=== PATIENT | male | born 1945 | race Caucasian/White ===

== ENCOUNTER 2017-05-03 08:00 | Day surgery (SDC) | payer MEDICARE ==
[2017-05-02 11:52] VITALS: BMI 24.4
[2017-05-03 09:12] LABS: INR-International Normal Ratio 1.6; Prothrombin Time 19.3 SEC (12.0-14.7)
[2017-05-03 09:17] LABS: PTT 32.4 SEC (22.9-36.1)
[2017-05-03 09:20] LABS: Anion Gap 12 mmol/L (10-20); BUN (Urea Nitrogen) 10 mg/dL (8.4-25.7); Calc. Creatinine Clearance 65 mL/min (70-130); Calcium 9.1 mg/dL (7.8-10.44); Carbon Dioxide 28 mmol/L (23-31); Chloride 101 mmol/L (98-107); Estimated GFR-MDRD 71; Glucose 116 mg/dL (83-110); Sodium 137 mmol/L (136-145)
[2017-05-03 09:22] LABS: #Lymphocytes 0.9 thou/uL (1.20-3.40); #Monocytes 0.6 thou/uL (0.11-0.59); #Neutrophils 4.2 thou/uL (1.40-6.50); %Basophils 0.8 % (0.0-1.0); %Eosinophils 0.9 % (0.0-10.0); %Lymphocytes 15.4 % (21.0-51.0); %Monocytes 9.5 % (0.0-10.0); %Neutrophils 73.4 % (42.0-75.0); Mean Corpuscular HGB CONC 33.4 g/dL (32.0-36.0); Platelet Count 240 thou/uL (130-400); RBC Distribution Width 12.8 % (11.5-14.5); Red Blood Cell (RBC) Count 4.27 mill/uL (4.70-6.10); White Blood Cell (WBC) Count 5.8 thou/uL (4.8-10.8)
[2017-05-03] MEDS ORDERED: Fentanyl 100 MCG/2 ML VIAL ONE (09:48)
--- NOTE | 2017-05-03 11:17 | OP ---
DATE OF PROCEDURE: 05/03/2017 PREPROCEDURE DIAGNOSIS: Atrial fibrillation. PROCEDURES PERFORMED: Synchronized direct current cardioversion. SUMMARY: Mr. Mcginnis is a very pleasant 72-year-old white gentleman who comes to the outpatient are a for a planned PETER cardioversion. Please see PETER report for details. After PETER had cleared him fro m any thrombus and the Anesthesia department provided with sedation for the patient, he was adequatel y sedated. One single synchronized 100 joules defibrillator shock was delivered, successfully conver ting him from atrial fibrillation into sinus bradycardia, heart rate in the mid 50s. The patient mireya erated the procedure well. RECOMMENDATIONS: 1. Continue Flecainide and Eliquis. 2. Follow up in the office in 1 month. 3. May discharge home later today.
[2017-05-03] MEDS ORDERED: PROPOFOL 200 MG/20 ML VIAL ONE (14:15)
[2017-05-03] MEDS ORDERED: Lidocaine 1% PF 5 ML VIAL ONE (14:15)
--- NOTE | 2017-05-03 16:25 | ECHO ---
TRANSESOPHAGEAL ECHOCARDIOGRAM: DATE OF SERVICE: 05/03/17 REASON FOR STUDY: Evaluation for cardioversion. DETAILS: The anesthesia department provided anesthesia for the patient. Please see their notes for details. After adequate sedation was achieved, the PETER probe was inserted into the patient's mouth and into the esophagus without issues. Multiplanar views were then obtained. FINDINGS: Left ventricle appears to be normal size with normal wall thickness. Systolic function is normal with EF estimated at 50%. No regional wall motion abnormalities. Left atrium is dilated. Left atrial appendage is a large appendage with severely reduced velocities and spontaneous echo contrast. There is no evidence of mass or thrombus. Right atrium is mildly dilated. Interatrial septum is intact by color Doppler. Right ventricle is normal size with normal systolic function. Aortic root is normal size. There is a small amount of atherosclerotic disease in the ascending aorta. Aortic valve structurally normal. Three cusps. No stenosis or regurgitation. Mitral valve is structurally normal. There is mild MR. No stenosis. Tricuspid valve is structurally normal. There is mild TR. No stenosis. Pulmonary valve structurally normal. No stenosis or regurgitation. CONCLUSIONS: 1. Normal systolic function, EF of 50-55%. 2. Dilated left atrium. 3. Large left atrial appendage with spontaneous echo contrast, but no evidence of mass or thrombus. The patient was in atrial fibrillation during study. 4. Right atrial enlargement. 5. Mild MR, mild TR. MTDD
== END 2017-05-03 11:40 | disposition home or self-care (01) ==
LOC: CCL 08:00
PROVIDERS: ATTEND Internal Medicine Cardiovascular Disease
DX: I48.91 Unspecified atrial fibrillation (principal); I34.0 Nonrheumatic mitral (valve) insufficiency; I07.1 Rheumatic tricuspid insufficiency; E11.9 Type 2 diabetes mellitus without complications; I10 Essential (primary) hypertension; E78.5 Hyperlipidemia, unspecified; I25.2 Old myocardial infarction; Z79.01 Long term (current) use of anticoagulants; Z79.899 Other long term (current) drug therapy; Z98.41 Cataract extraction status, right eye; Z98.42 Cataract extraction status, left eye; Z98.890 Other specified postprocedural states
CPT/HCPCS: 80048; 85025; 85610; 85730; 92960; 93312; J2001; J2704; J3010

== ENCOUNTER 2017-07-10 16:02 | Emergency (ER) | payer MEDICARE ==
[2017-07-10 16:54] LABS: #Eosinphils 0.2 thou/uL (0.0-0.7); #Lymphocytes 1.2 thou/uL (1.20-3.40); #Monocytes 0.8 thou/uL (0.11-0.59); #Neutrophils 3.6 thou/uL (1.40-6.50); %Basophils 0.2 % (0.0-1.0); %Eosinophils 2.8 % (0.0-10.0); %Lymphocytes 21.5 % (21.0-51.0); %Monocytes 13.1 % (0.0-10.0); %Neutrophils 62.4 % (42.0-75.0); Mean Corpuscular HGB CONC 34.2 g/dL (32.0-36.0); Mean Corpuscular Hemoglobin 34.9 pg (27.0-31.0); Mean Platelet Volume 6.2 fL (7.4-10.4); Platelet Count 294 thou/uL (130-400); RBC Distribution Width 12.8 % (11.5-14.5); Red Blood Cell (RBC) Count 4.31 mill/uL (4.70-6.10); White Blood Cell (WBC) Count 5.8 thou/uL (4.8-10.8)
[2017-07-10 17:14] LABS: ALT (SGPT) 26 U/L (8-55); AST (SGOT) 19 U/L (5-34); Albumin 4.2 g/dL (3.4-4.8); Alkaline Phosphatase 109 U/L (40-150); Anion Gap 12 mmol/L (10-20); BUN (Urea Nitrogen) 11 mg/dL (8.4-25.7); Bilirubin, Total 0.6 mg/dL (0.2-1.2); Calc. Creatinine Clearance 0 mL/min (70-130); Calcium 9.4 mg/dL (7.8-10.44); Carbon Dioxide 28 mmol/L (23-31); Chloride 102 mmol/L (98-107); Estimated GFR-MDRD 80; Globulin 3.3 g/dL (2.4-3.5); Glucose 85 mg/dL (83-110); Potassium 4.2 mmol/L (3.5-5.1); Protein, Total 7.5 g/dL (5.8-8.1); Sodium 138 mmol/L (136-145)
[2017-07-10 17:19] LABS: CKMB 0.9 ng/mL (0-6.6); Troponin I 0.014 ng/mL (< 0.028)
== END 2017-07-10 17:42 | disposition home or self-care (01) ==
LOC: ERS 16:02
DX: I10 Essential (primary) hypertension (principal); I48.91 Unspecified atrial fibrillation; E11.9 Type 2 diabetes mellitus without complications; E78.5 Hyperlipidemia, unspecified; Z87.891 Personal history of nicotine dependence; Z79.82 Long term (current) use of aspirin; Z79.899 Other long term (current) drug therapy
CPT/HCPCS: 80053; 82553; 84443; 84484; 85025; 93005

== ENCOUNTER 2017-07-11 08:38 | Outpatient (CLI) | payer MEDICARE ==
[2017-07-11 10:26] LABS: INR-International Normal Ratio 1.4; PTT 31.2 SEC (22.9-36.1); Prothrombin Time 17.2 SEC (12.0-14.7)
[2017-07-11 10:29] LABS: Cardiac Risk 4.7 (Less than 4.5)
== END 2017-07-11 08:39 | disposition home or self-care (01) ==
LOC: LABBT 08:38
PROVIDERS: ATTEND Internal Medicine Cardiovascular Disease
DX: Z01.812 Encounter for preprocedural laboratory examination (principal); I70.90 Unspecified atherosclerosis
CPT/HCPCS: 80061; 85610; 85730

== ENCOUNTER → 2017-07-13 | Day surgery (SDC) | payer MEDICARE ==
[2017-07-11 09:17] VITALS: BMI 24.3
[~2017-07-13] MED LIST: Fentanyl 250 MCG/5 ML VIAL ONE; Heparin 10,000 UNITS/1 ML VIAL ONE; Iopamidol 370 76% 100 ML VIAL ONE; Lidocaine 1% (PF) 30 ML VIAL ONE; Midazolam HCl 2 mg/2 ml Vial ONE; Nitroglycerin 100MG/250ML BOT 250 ML ONE; Verapamil 5 MG/2 ML VIAL ONE; hydrALAZINE 20 MG/ML VIAL ONE
== END ==
LOC: CCL 06:12
PROVIDERS: ATTEND Internal Medicine Cardiovascular Disease
PROC: B2111ZZ Fluoroscopy of Multiple Coronary Arteries using Low Osmolar Contrast (ICD-10-PCS; principal; 2017-07-13)
PROC: 4A023N7 Measurement of Cardiac Sampling and Pressure, Left Heart, Percutaneous Approach (ICD-10-PCS; 2017-07-13)
DX: I25.10 Atherosclerotic heart disease of native coronary artery without angina pectoris (principal); I10 Essential (primary) hypertension; E11.9 Type 2 diabetes mellitus without complications; E78.5 Hyperlipidemia, unspecified; I25.2 Old myocardial infarction; Z79.01 Long term (current) use of anticoagulants; Z79.899 Other long term (current) drug therapy
CPT/HCPCS: 93458; C1769; 99152; J0360; J1644; J2001; J2250; J3010

== ENCOUNTER 2017-07-25 08:33 | Outpatient (CLI) | payer MEDICARE | END 2017-07-25 08:34 | disposition home or self-care (01) | LOC: LABBT 08:33 | PROVIDERS: ATTEND Internal Medicine Cardiovascular Disease | DX: Z01.818 Encounter for other preprocedural examination (principal); I48.0 Paroxysmal atrial fibrillation ==

== ENCOUNTER 2017-07-26 06:07 | Day surgery (SDC) | payer MEDICARE ==
[2017-07-25 08:57] VITALS: BMI 24.3
[2017-07-26] MEDS ORDERED: Lidocaine 1% PF 5 ML VIAL ONE ×2 (12:53→13:17)
[2017-07-26] MEDS ORDERED: PROPOFOL 200 MG/20 ML VIAL ONE (12:53)
[2017-07-26] MEDS ORDERED: PROPOFOL 20 ML ONE (13:18)
--- NOTE | 2017-08-04 20:12 | OP ---
DATE OF SERVICE: 07/27/2017. PROCEDURES PERFORMED: Cardioversion. SUMMARY: The patient was brought to the outpatient area for planned cardioversion. He has been on Eliquis for about 2 months now nonstop and is back in atrial fibrillation, very symptomatic. He was sedated by the Anesthesia Department. Please see their notes for detail. After adequate sedation was achieved One single 100 joules synchronized cardioversion shock was delivered successfully converting him from atrial fibrillation to sinus bradycardia. Heart rate initially in the 30s, but slowly picked up back to the 40s and low 50s. Patient tolerated the procedure well. RECOMMENDATIONS: 2. Continue antiarrhythmic therapy and anticoagulation with Eliquis. 3. Follow up in the office in one month.
== END 2017-07-26 14:42 | disposition home or self-care (01) ==
LOC: CCL 06:07
PROVIDERS: ATTEND Internal Medicine Cardiovascular Disease
PROC: 5A2204Z Restoration of Cardiac Rhythm, Single (ICD-10-PCS; principal; 2017-07-26)
DX: I48.0 Paroxysmal atrial fibrillation (principal); E11.9 Type 2 diabetes mellitus without complications; I10 Essential (primary) hypertension; E78.5 Hyperlipidemia, unspecified; I25.2 Old myocardial infarction; I70.90 Unspecified atherosclerosis; Z79.01 Long term (current) use of anticoagulants; Z79.899 Other long term (current) drug therapy
CPT/HCPCS: 92960; J2001; J2704

== ENCOUNTER 2017-11-14 13:30 | Outpatient (CLI) | payer MEDICARE ==
[2017-11-14 14:53] LABS: Hemoglobin 16.2 g/dL (14.0-18.0); Mean Corpuscular HGB CONC 35.3 g/dL (32.0-36.0); Mean Corpuscular Hemoglobin 35.7 pg (27.0-31.0); Mean Platelet Volume 5.7 fL (7.4-10.4); Platelet Count 284 thou/uL (130-400); RBC Distribution Width 12.9 % (11.5-14.5); Red Blood Cell (RBC) Count 4.55 mill/uL (4.70-6.10); White Blood Cell (WBC) Count 5.9 thou/uL (4.8-10.8)
[2017-11-14 14:56] LABS: INR-International Normal Ratio 1.3; Prothrombin Time 16.5 SEC (12.0-14.7)
[2017-11-14 14:57] LABS: PTT 33.9 SEC (22.9-36.1)
[2017-11-14 15:09] LABS: Anion Gap 14 mmol/L (10-20); BUN (Urea Nitrogen) 8 mg/dL (8.4-25.7); Calc. Creatinine Clearance 0 mL/min (70-130); Calcium 9.3 mg/dL (7.8-10.44); Carbon Dioxide 30 mmol/L (23-31); Chloride 85 mmol/L (98-107); Estimated GFR-MDRD 74; Glucose 164 mg/dL (83-110); Potassium 3.6 mmol/L (3.5-5.1); Sodium 125 mmol/L (136-145)
--- NOTE | 2017-11-14 17:31 | EKG ---
Test Reason : Blood Pressure : / mmHG Vent. Rate : 083 BPM Atrial Rate : 150 BPM P-R Int : 000 ms QRS Dur : 102 ms QT Int : 388 ms P-R-T Axes : 000 072 063 degrees QTc Int : 455 ms Atrial fibrillation Anteroseptal infarct (cited on or before 10-JUL-2017) Abnormal ECG When compared with ECG of 10-JUL-2017 16:07, Questionable change in QRS axis Confirmed by RADHA KUMAR ([id number]) on 11/14/2017 5:31:47 PM Referred By: SO Confirmed By:RADHA KUMAR
== END 2017-11-14 13:31 | disposition home or self-care (01) ==
LOC: LABBT 13:30
PROVIDERS: ATTEND Internal Medicine Cardiovascular Disease
DX: Z01.818 Encounter for other preprocedural examination (principal); I48.91 Unspecified atrial fibrillation
CPT/HCPCS: 80048; 85027; 85610; 85730; 93005; 93010

== ENCOUNTER 2017-11-19 06:01 | Inpatient (IN) | payer MEDICARE ==
[2017-11-19] MEDS ORDERED: Fentanyl 100 MCG/2 ML VIAL ONE (07:18)
[2017-11-19] MEDS ORDERED: Heparin 10,000 UNITS/1 ML VIAL ONE ×2 (08:27→12:10)
[2017-11-19] MEDS ORDERED: Isoproterenol 0.2 MG/1 ML AMP ONE (08:28)
[2017-11-19] MEDS ORDERED: Heparin 25,000 units/D5W 500 ML ONE (10:42)
[2017-11-19] MEDS ORDERED: Phenylephrine HCL 10 MG/ML VIAL ONE (10:43)
[2017-11-19] MEDS ORDERED: PROPOFOL 200 MG/20 ML VIAL ONE (11:55)
[2017-11-19] MEDS ORDERED: Esmolol 100 MG/10 ML VIAL ONE (11:55)
[2017-11-19] MEDS ORDERED: Heparin 30,000 units/30 ml VIAL ONE (11:55)
[2017-11-19] MEDS ORDERED: PHENYLEPHRINE-NS 100 MCG/ML 10 ML SYRINGE ONE (11:55)
[2017-11-19] MEDS ORDERED: Glycopyrrolate 0.2 MG/ML 5 ML SYRINGE ONE (11:55)
[2017-11-19] MEDS ORDERED: Protamine Sulfate 50 MG/5 ML VIAL ONE (13:05)
--- NOTE | 2017-11-19 13:06 | OP ---
DATE OF PROCEDURE: 11/19/2017 SURGEON: Dr. Jose Christie REFERRING PHYSICIAN: Dr. Adonay Subramanian PROCEDURE: ELECTROPHYSIOLOGY STUDY/RADIOFREQUENCY ABLATION REASON FOR PROCEDURE: Mr. Mcginnis has a persistent atrial fibrillation/ flutter here for a pulmonary venous isolation procedure. PROCEDURE: The patient received General anesthesia by Anesthesia specialist. After adequate sedation, the left and right groin was prepped, draped and anesthetized using subcutaneous lidocaine and under ultrasound guidance, both veins were cannulated x2. A 9-Sierra Leonean sheath was used to advance the ice catheter throughout the procedure. This was used to monitor effusion as well as to do transseptal procedure. The right femoral veins had two 8 [place]an sheaths introduced through which a catheter was advanced to the right atrium and 3D map of the right atrium was performed. Following that, the SF/ST ablation catheter was removed. A 8 [place] sheath was exchanged for a preface sheath and a Duodeca catheter was advanced into the appropriate CS/right atrial position. Following that, transseptal puncture was performed x2 with 2 SL1 sheaths under ultrasound guidance. The heparin was administered throughout the case at that point and ACT was monitored to keep it over 350. Following that, the ablation catheter was replaced in the left atrium as well as a pentarray catheter. A 3D map of the left atrium was performed and a pulmonary venous isolation performed with careful monitoring of his esopahgeal temperatures. At this point, the patient remained in atrial fibrillation. Following that, the posterior wall was isolated. The patient still remained in atrial fibrillation. Following that, the ablation was performed on the base of the left atrium and over the CS. Still the patient remained in atrial fibrillation. Following that, early national dedicated truck driver on the right atrium was noted so the ablation catheter was withdrawn to the right atrium and ablation was performed in the miguel area. High energy pacing did not capture the phrenic nerve capture at the ablation sites. Alos ablation on the CS was performend at 25W. This eliminated the drivers of rapid atrila arrhtyhmia and and we noted a slower, more organized flutter@ CL 280ms. This flutter was pace mapped to the anterior left atrium close to the base of the appendage. Ablation performed in this area terminated the flutter, but an additional flutter was seen at cycle length 380 milliseconds. This flutter was mapped to the mitral valve isthmus and ablation of mitral valve isthmus ablated the atrial flutter. The patient converted to sinus rhythm with this maneuver. Following that isuprel was administered and remapping of the pulmonary veins were performed. No connections were needed to be re-ablated. The cardiac silhouette and ICE images reviewed, but did not reveal significant effusion. The catheters were withdrawn to the right atrium and then removed from the body. ACT was checked and protamine was administered to reverse the heparin effect. The sheaths were removed in the dental laboratory assistant. Measurements: HV 46ms. BAseline atrial fib. Final Sinus rhtyhm. Normal retrograde VA conduction, no accessory pathwas seen. The total amount of ablation performed was 92. Total ablation time 41 minutes. The power today was 40 hooks except for in the coronary sinus where the ablation was also performed at 25 hooks. CONCLUSION: Successful pulmonary venous isolation and additional right atrial and 2 left atrial tachycardia ablations. PLAN: Routine postoperative care. Resume anticoagulation and routine monitoring. MTDD
[2017-11-19] MEDS ORDERED: Acetaminophen/Codeine 30-300mg Tablet PO PRN ×2 (15:15)
[2017-11-19 18:53] VITALS: BMI 25.0
[2017-11-19] MEDS: Apixaban 5 MG TAB PO SCH (21:19)
[2017-11-19] MEDS: Atorvastatin Calcium 10 MG TAB PO SCH (21:21)
[2017-11-20] MEDS: Hydrochlorothiazide 25 MG TAB PO SCH (08:23)
[2017-11-20] MEDS: Lisinopril 20 MG TAB PO SCH (08:24)
[2017-11-20] MEDS: Apixaban 5 MG TAB PO SCH ×2 (08:24→20:09)
[2017-11-20] MEDS: Escitalopram Oxalate 10 mg Tablet PO SCH (08:24)
[2017-11-20] MEDS ORDERED: Prevnar 13-Val Conj/PF 0.5 ML SYRINGE IM ONE (09:00)
[2017-11-20] MEDS ORDERED: Furosemide 40 MG/4 ML VIAL SLOW IVP SCH ×2 (15:30→18:45)
--- NOTE | 2017-11-20 16:07 | RAD ---
CHEST ONE VIEW: History: Hypoxia, tachypnea. FINDINGS: Cardiac silhouette is magnified and enlarged. Pulmonary vasculature is engorged with bilateral perihi lar and bibasilar infiltrates. Mediastinum is midline. No lobar consolidation or evidence of pneumoth orax. potline monitor leads overlie the chest. IMPRESSION: Cardiomegaly with pulmonary edema. POS: [facility]
[2017-11-20 16:15] LABS: Hemoglobin 14.6 g/dL (14.0-18.0); Mean Corpuscular Hemoglobin 36.4 pg (27.0-31.0); Mean Platelet Volume 5.4 fL (7.4-10.4); Platelet Count 266 thou/uL (130-400); RBC Distribution Width 13.4 % (11.5-14.5); Red Blood Cell (RBC) Count 4.02 mill/uL (4.70-6.10); White Blood Cell (WBC) Count 9.8 thou/uL (4.8-10.8)
[2017-11-20 16:30] LABS: ALT (SGPT) 21 U/L (8-55); AST (SGOT) 45 U/L (5-34); Albumin 3.9 g/dL (3.4-4.8); Alkaline Phosphatase 90 U/L (40-150); Anion Gap 17 mmol/L (10-20); BUN (Urea Nitrogen) 10 mg/dL (8.4-25.7); Bilirubin, Total 0.9 mg/dL (0.2-1.2); Calc. Creatinine Clearance 154 mL/min (70-130); Calcium 8.7 mg/dL (7.8-10.44); Carbon Dioxide 22 mmol/L (23-31); Chloride 94 mmol/L (98-107); Estimated GFR-MDRD 77; Glucose 124 mg/dL (83-110); Potassium 3.6 mmol/L (3.5-5.1); Protein, Total 6.9 g/dL (5.8-8.1); Sodium 129 mmol/L (136-145)
[2017-11-20] MEDS ORDERED: Enalaprilat Dihydrate 1.25 MG/ML VIAL SLOW IVP PRN (16:32)
[2017-11-20] MEDS: Labetalol HCl 100 MG/20 ML VIAL SLOW IVP PRN ×2 (16:39→17:50)
[2017-11-20 16:41] LABS: Band 9 % (5-11); Eosinophils 1 % (0-10); Lymphocytes 4 % (21-51); MDiff Complete? YES; Monocytes 4 % (0-10); Neutrophil 82 % (42-75); PLT Morphology Comment Appears Adequate
[2017-11-20] MEDS ORDERED: niCARdipine HCl 25 MG in Sodium Chloride 0.9% 250 ML 240 ML IVPB SCH (17:00)
--- NOTE | 2017-11-20 17:47 | PDOC.CTH ---
Cardiology Progress Note - Subjective EP progress note: Patient seen and evaluated. Reports poor sleep, a persisting cough, and some shortness or breath. Denies any chest pain, dizziness, or palpitations. Has been OOB walking last night with RN. Minimally active today. - ROS shortness of breath - Objective Vital Signs Temp Pulse Pulse Resp Resp BP BP 11/20/17 17:03 99.9 F H 88 24 H 11/20/17 16:41 88 11/20/17 16:39 93 177/108 H 11/20/17 16:38 177/108 H 11/20/17 16:05 99.9 F H 11/20/17 16:03 96 35 H 11/20/17 15:54 97 22 H 167/90 H 11/20/17 15:18 101 H 222/116 H 11/20/17 15:04 102 H 36 H 206/106 H 11/20/17 15:00 11/20/17 11:03 99.1 F 90 20 11/20/17 08:15 99 F 94 17 11/20/17 07:15 99 F 94 17 BP Pulse Ox Pulse Ox 11/20/17 17:03 95 11/20/17 16:41 11/20/17 16:39 11/20/17 16:38 11/20/17 16:05 11/20/17 16:03 167/90 H 94 L 11/20/17 15:54 94 L 11/20/17 15:18 11/20/17 15:04 79 L 11/20/17 15:00 90 L 11/20/17 11:03 146/87 H 97 11/20/17 08:15 11/20/17 07:15 168/92 H 93 L Weight 352 lb 1.251 oz 11/19/17 11/20/17 11/21/17 06:59 06:59 06:59 Intake Total 1480 Output Total 550 2120 Balance -550 -640 - Physical Examination General/Neuro: alert & oriented x3, NAD Neck: carotid US brisk, no JVD present (JVD) Lungs: other: (extensive Bilateral crackles throughout, tachypnea) Heart: RRR Abdomen: no HSM, NT/ND, soft - Telemetry Telemetry Rhythm: Sinus rhythm - Labs Result Diagrams: 11/20/17 15:57 11/20/17 15:57 - Assessment/Plan 1. Atrial fibrillation s/p PVAI yesterday, now maintaining sinus rhythm 2. Pulmonary Edema/Fluid overload 3. Hypertension 4. Small percardial effusion by echo 5. Hyponatremia Patient was in moderate respiratory distress with obvious increased work of breathing and hypertensive. 40mg IV lasix was given with minimal effect. Labs, CXR, and echo ordered. Echo showed small pericardial effusion. CXR showed pulmonary edema. Transferred to [facility] for Bipap support and Dr. Muhammad was consulted by Dr Christie. He will require further diuresing and respiratory support during this time. IV antihypertensives ordered. Dr Christie spoke with family and updated them on the situation.
[2017-11-20] MEDS ORDERED: Potassium Chloride 20 MEQ TAB PO PRN (18:32)
[2017-11-20] MEDS ORDERED: Potassium Chloride 40 MEQ in Premix Bag 1 BAG IVPB PRN (18:32)
[2017-11-20] MEDS ORDERED: Potassium Phosphate 15 MMOL in Sodium Chloride 0.9% 250 ML 250 ML IV PRN (18:32)
[2017-11-20] MEDS ORDERED: Magnesium 2 GM/NS 0.9% 100 ML 2 GM in Premix Bag 1 BAG IVPB PRN (18:32)
[2017-11-20] MEDS ORDERED: Potassium Phosphate 12 MMOL in Sodium Chloride 0.9% 250 ML 250 ML IV PRN (18:32)
[2017-11-20] MEDS ORDERED: Magnesium Oxide 400 MG TAB PO PRN ×2 (18:32)
[2017-11-20] MEDS ORDERED: Potassium Phosphate 9 MMOL in Sodium Chloride 0.9% 100 ML IVPB PRN (18:32)
[2017-11-20] MEDS ORDERED: Potassium Chloride 40 MEQ in Sodium Chloride 0.9% 250 ML 250 ML IVPB PRN (18:32)
[2017-11-20] MEDS ORDERED: CCU ELECTROLYTE REPLACEMENT PROTOCOL FS PRN (18:32)
[2017-11-20] MEDS ORDERED: Potassium Chloride 20 MEQ TAB PO SCH (18:45)
[2017-11-20 19:44] LABS: Anion Gap 15 mmol/L (10-20); BUN (Urea Nitrogen) 10 mg/dL (8.4-25.7); Calc. Creatinine Clearance 146 mL/min (70-130); Calcium 9.1 mg/dL (7.8-10.44); Carbon Dioxide 24 mmol/L (23-31); Chloride 93 mmol/L (98-107); Estimated GFR-MDRD 73; Glucose 120 mg/dL (83-110); Potassium 3.5 mmol/L (3.5-5.1); Sodium 128 mmol/L (136-145)
[2017-11-20] MEDS ORDERED: Colchicine 0.6 MG TAB PO SCH ×2 (20:00→21:00)
[2017-11-20] MEDS: Atorvastatin Calcium 10 MG TAB PO SCH (20:09)
--- NOTE | 2017-11-20 22:22 | CON ---
DATE OF CONSULTATION: 11/20/2017 HISTORY OF PRESENT ILLNESS: Mr. Mcginnis is a pleasant gentleman, who underwent an elective atrial f ibrillation ablation today. He apparently became tachypneic and was transferred to the ICU. He was extremely hypertensive on arrival. When I arrived, his blood pressure is 190/105. After 10 minutes, I checked his blood pressure, again it is 156/90. His heart rate is in the 70s, hi s respiratory rate is in the 20s, now he is on BiPAP. PAST MEDICAL HISTORY: Remarkable for, 1. Left carotid endarterectomy in 2016. 2. History of lipid disorder. 3. History of hypertension. 4. History of reflux with esophageal stricture. It has been dilated in the past. FAMILY HISTORY: The mother . Father in his 60s. Mother in her 80s. SOCIAL HISTORY: He is a former smoker, does not smoke now, does drink on a daily basis. ALLERGIES: He has no drug allergies. REVIEW OF SYSTEMS: Ten points is, otherwise, negative. PHYSICAL EXAMINATION: VITAL SIGNS: He is currently 150/93, heart rate 77, respiratory rate is in the 20s. HEENT: His pupils are equal. Sclerae is anicteric. NECK: Supple. LUNGS: Remarkable for fine crackles at both lung bases. HEART: Regular rhythm. S1 and S2 are normal. There is no S3 heard. ABDOMEN: Soft and nontender. EXTREMITIES: Without clubbing, cyanosis, or edema. NEUROLOGIC: Grossly nonfocal. Chest radiograph was reviewed by me, shows pulmonary edema. IMPRESSION: Hypertensive pulmonary edema, improving with blood pressure control. He has received 2 antihypertensive drugs, appears to be improving. Veronica is now on standby. per my orders. I suspe ct we will be able to remove BiPAP here within the hour. Critical care time, 30 minutes.
[2017-11-21 05:25] LABS: #Eosinphils 0.1 thou/uL (0.0-0.7); #Lymphocytes 0.9 thou/uL (1.20-3.40); #Monocytes 0.9 thou/uL (0.11-0.59); #Neutrophils 5.7 thou/uL (1.40-6.50); %Basophils 0.5 % (0.0-1.0); %Eosinophils 1.1 % (0.0-10.0); %Lymphocytes 11.4 % (21.0-51.0); %Monocytes 12.3 % (0.0-10.0); %Neutrophils 74.7 % (42.0-75.0); Mean Corpuscular HGB CONC 35.4 g/dL (32.0-36.0); Mean Corpuscular Hemoglobin 36.6 pg (27.0-31.0); Mean Platelet Volume 5.5 fL (7.4-10.4); Platelet Count 216 thou/uL (130-400); RBC Distribution Width 13.1 % (11.5-14.5); Red Blood Cell (RBC) Count 3.55 mill/uL (4.70-6.10); White Blood Cell (WBC) Count 7.6 thou/uL (4.8-10.8)
[2017-11-21 05:38] LABS: Anion Gap 16 mmol/L (10-20); BUN (Urea Nitrogen) 11 mg/dL (8.4-25.7); Calc. Creatinine Clearance 168 mL/min (70-130); Calcium 8.6 mg/dL (7.8-10.44); Carbon Dioxide 24 mmol/L (23-31); Chloride 93 mmol/L (98-107); Estimated GFR-MDRD 86; Glucose 112 mg/dL (83-110); Potassium 3.6 mmol/L (3.5-5.1); Sodium 129 mmol/L (136-145)
[2017-11-21] MEDS: Apixaban 5 MG TAB PO SCH (08:41)
[2017-11-21] MEDS: Escitalopram Oxalate 10 mg Tablet PO SCH (08:43)
[2017-11-21] MEDS: Hydrochlorothiazide 25 MG TAB PO SCH (08:44)
[2017-11-21] MEDS: Lisinopril 20 MG TAB PO SCH (08:44)
[2017-11-21 08:46] VITALS: BP 158/73
[2017-11-21] MEDS ORDERED: Colchicine 0.6 MG TAB PO SCH (09:00)
[2017-11-21] MEDS ORDERED: Furosemide 40 MG/4 ML VIAL SLOW IVP SCH (09:00)
[2017-11-21] MEDS ORDERED: Potassium Chloride 20 MEQ TAB PO SCH (10:30)
--- NOTE | 2017-11-21 12:06 | PRG ---
DATE OF SERVICE: 11/21/2017 SUBJECTIVE: Mr. Mcginnis says he feels 100% better. His blood pressure has been controlled this mor jayde. OBJECTIVE: VITAL SIGNS: Blood pressure is 134/75, heart rate 80, respiratory rates in the teens, oximetry is 94 on 1 liter. Currently trying to wean him off oxygen. LUNGS: Clear. He received more Lasix this morning. He has received potassium replacement this morn ing. HEART: Regular rhythm. ABDOMEN: Soft. IMPRESSION: 1. Hypertensive pulmonary edema. 2. Status post atrial fibrillation ablation. If we can wean him off oxygen and he continues to diur lon, he could be discharged home at some point today or tomorrow. We will sign off.
--- NOTE | 2017-11-21 13:15 | PDOC.CTH ---
<Ange Saldivar - Last Filed: 11/21/17 13:01> Cardiology Progress Note - Subjective EP progress note: Patient seen and evaluated. No new cardiac concerns or complaints today. Breathing much easier. No shortness of breath or coughing today. Denies heart racing, palpitations, chest pain/pressure, dizziness, or passing out. No stroke like symptoms. - Objective Vital Signs Temp Pulse Resp BP Pulse Ox 11/21/17 12:00 98.3 F 94 L 11/21/17 08:44 158/73 H 11/21/17 08:43 71 158/73 H 11/21/17 08:00 98.7 F 71 18 96 11/21/17 03:00 98.8 F Weight 350 lb 8.56 oz 11/20/17 11/21/17 11/22/17 06:59 06:59 06:59 Intake Total 1630 600 Output Total 550 4270 1250 Balance -550 -2640 -650 - Physical Examination General/Neuro: alert & oriented x3, NAD Neck: carotid US brisk, no JVD present Lungs: unlabored respirations, other: (fine bibasilar crackles) Heart: PMI normal, RRR Abdomen: no HSM, NT/ND, soft - Telemetry Telemetry Rhythm: NSR - Labs Result Diagrams: 11/21/17 05:06 11/21/17 05:06 - Assessment/Plan 1. Atrial fibrillation s/p PVAI yesterday, now maintaining sinus rhythm 2. Pulmonary Edema/Fluid overload- resolved with IV lasix and bipap 3. Hypertension- resolved. off cardene gtt 4. Small percardial effusion by echo- continue colchicine post ablation, no signs of tamponade 5. Hyponatremia- resolved Respiratory status has greatly improved with diuresing and bipap overnight. Now stable and ready for discharge if OK with pulmonology. Maintaining sinus rhythm. Will continue PO lasix & potassium as ordered in DC plan. <Jose Christie - Last Filed: 11/21/17 19:50> Cardiology Progress Note - Objective Vital Signs Temp Pulse Resp BP Pulse Ox 11/21/17 16:00 98.4 F 11/21/17 12:00 98.3 F 94 L 11/21/17 08:44 158/73 H 11/21/17 08:43 71 158/73 H 11/21/17 08:00 98.7 F 71 18 96 Weight 350 lb 8.56 oz 11/20/17 11/21/17 11/22/17 06:59 06:59 06:59 Intake Total 1630 600 Output Total 550 4270 1600 Balance -550 -2640 -1000 - Labs Result Diagrams: 11/21/17 05:06 11/21/17 05:06 Attending Addendum - Attending Addendum Date/Time: 11/21/171949 I personally evaluated the patient and discussed the management with Ms Saldivar. I agree with the History, Examination, Assessment and Plan documented above with any addition or exceptions noted below.
--- NOTE | 2017-11-21 13:31 | PQF ---
CLINICAL DOCUMENTATION IMPROVEMENT CLARIFICATION FORM: ICD-10 Updated PLEASE DO AN ADDENDUM TO THE PROGRESS NOTE WITH ANY DOCUMENTATION UPDATES OR ADDITIONS AND CARRY THROUGH TO DC SUMMARY. THANK YOU. DATE: 11/21 ATTN: DR. JERILYN RIZZO Please exercise your independent, professional judgment in responding to the clarification form. Clinical indicators are provided on the bottom of this form for your review. Please check appropriate box(s): PULMONARY EDEMA/ FLUID OVERLOAD (PN ) [ x ] ACUTE [ ] CHRONIC [ ] ACUTE ON CHRONIC [ ] Other diagnosis [ ] Unable to determine For continuity of documentation, please document condition throughout progress notes and discharge summary. Thank You. CLINICAL INDICATORS - SIGNS / SYMPTOMS / LABS CODE GREEN 11/20 FOR RESPIRATORY DISTRESS; PT TRANSFERRED TO [facility] TO START BIPAP CXR 11/20: IMPRESSION: CARDIOMEGALY WITH PULMONARY EDEMA PULMONOLOGY CONSULT 11/20: IMPRESSION: HYPERTENSIVE PULMONARY EDEMA CARDIOLOGY EP PN 11/20: 1) AFIB S/P PVAI YESTERDAY; 2) PULMONARY EDEMA/FLUID OVERLOAD. PATIENT WAS IN MODERATE RESPIRATORY DISTRESS W/OBVIOUS INCREASED WORK OF BREATHING & HYPERTENSIVE. 40 MG IV LASIX GIVEN W/MINIMAL EFFECT. ECHO SHOWED SMALL PERICARDIAL EFFUSION. CXR SHOWED PULMONARY EDEMA. TRANSFERRED TO [facility] FOR BIPAP SUPPORT. RISK FACTORS: S/P EPS W/PVAI (11/19) HYPERTENSION MODERATE RESPIRATORY DISTRESS TREATMENTS: BIPAP (11/20) IV LASIX (11/20 - PRESENT) THANK YOU! Na (This form is maintained as a part of the permanent medical record) 2014 [employer]. All Rights Reserved Na Mills RN, BSN [email or web address] Office: [phone] [facility]
[2017-11-21 16:38] VITALS: TEMP 98.4
--- NOTE | 2017-11-22 05:14 | DIS ---
DATE OF ADMISSION: 11/19/2017 DATE OF DISCHARGE: 11/21/2017 PRIMARY WAITER/WAITRESS ROOM SERVICE: Adonay Subramanian MD ADMITTING DIAGNOSES: 1. Persistent atrial fibrillation. 2. Status post elective pulmonary venous isolation, coronary sinus, left atrial septum miguel terminalis ablation with total of 51 minutes of ablation time by Dr. Christie on the preceding day. 3. Development of IV fluid overload, resolved with aggressive diuresis, likely related to exacerbated diastolic heart failure. 4. Hypertension, now improving. 5. Atypical chest pains post procedure/pericarditis, on colchicine. HOSPITAL COURSE: Mr. Mcginnis was admitted after elective pulmonary venous isolation procedure. He had extensive ablation performed as noted above. Total 51 minutes of ablation was performed and eventually we were able to restore sinus rhythm, which he maintained throughout his stay in the hospital. Subsequent day though, he did develop an episode of fluid overload and required transient BiPAP ventilatory support and aggressive diuresis. Blood pressure was also required transient IV Cardene, which has corrected his diastolic function and eventually the patient became asymptomatic. The oxygen was weaned. His oxygen saturation remained stable on the last day of admission. His electrolytes were replaced. Most recent labs revealed white count 7.6, hemoglobin 13, platelet count is 216. Sodium 129, potassium 3.6, BUN is 11, creatinine 0.87. DISCHARGE DISPOSITION: He is being discharged in a stable condition to home. DISCHARGE MEDICATIONS: Apixaban 5 mg daily, Lipitor, colchicine 0.6 mg twice a day, diltiazem 120 mg p.o. q.a.m., Protonix 40 mg daily, Carafate 1 gram q.6 hours, Lasix 40 mg daily with 20 mEq of potassium for 3 days and then as needed. FOLLOWUP: He is going to see Dr. Subramanian in a week. 6 henna EP followup in our office is requested. RAYMOND
--- NOTE | 2017-11-23 14:58 | EKG ---
Test Reason : POST ABLATION Blood Pressure : / mmHG Vent. Rate : 081 BPM Atrial Rate : 081 BPM P-R Int : 182 ms QRS Dur : 100 ms QT Int : 410 ms P-R-T Axes : 078 094 028 degrees QTc Int : 476 ms Normal sinus rhythm Rightward axis Cannot rule out Anterior infarct (cited on or before 10-JUL-2017) Abnormal ECG When compared with ECG of 14-NOV-2017 14:34, Sinus rhythm has replaced Atrial fibrillation Confirmed by MARTHA NELSON MD ([id number]) on 11/23/2017 2:58:09 PM Referred By: SO Confirmed By:MARTHA NELSON MD
== END 2017-11-21 16:16 | disposition home or self-care (01) | DRG 273 ==
LOC: CCL 06:01 → 2SW 18:50 → OBSVTOIN 11-20 16:06 → CCU 11-20 16:06
PROVIDERS: ADMIT Internal Medicine Cardiovascular Disease; ATTEND Internal Medicine Cardiovascular Disease
PROC: 02583ZZ Destruction of Conduction Mechanism, Percutaneous Approach (ICD-10-PCS; principal; 2017-11-19)
PROC: 02K83ZZ Map Conduction Mechanism, Percutaneous Approach (ICD-10-PCS; 2017-11-19)
PROC: 4A023FZ Measurement of Cardiac Rhythm, Percutaneous Approach (ICD-10-PCS; 2017-11-19)
PROC: 4A0234Z Measurement of Cardiac Electrical Activity, Percutaneous Approach (ICD-10-PCS; 2017-11-19)
PROC: 5A09357 Assistance with Respiratory Ventilation, Less than 24 Consecutive Hours, Continuous Positive Airway Pressure (ICD-10-PCS; 2017-11-20)
DX: I48.1 Persistent atrial fibrillation (principal); I50.33 Acute on chronic diastolic (congestive) heart failure; I31.3 Pericardial effusion (noninflammatory); E87.1 Hypo-osmolality and hyponatremia; I48.92 Unspecified atrial flutter; I11.0 Hypertensive heart disease with heart failure; Z79.82 Long term (current) use of aspirin; Z79.899 Other long term (current) drug therapy
CPT/HCPCS: 36415; 36416; 71045; 76942; 80048; 80053; 85025; 85347; 90471; 90670; 93005; 93306; 93613; 93622; 93623; 93655; 93656; 93662; 94660; C1730; C1731; C1732; C1759; C1769; G0009; J1644; J1940; J2370; J2704; J2720; J3010; J7050

== ENCOUNTER 2018-01-01 12:09 | Emergency (ER) | payer MEDICARE ==
[2018-01-01 12:37] LABS: Bilirubin Negative (Negative); Blood, Urine Large (Negative); Clarity CLOUDY (Clear); Glucose, Urine (Dipstick) Negative (Negative); Leukocyte Large (Negative); Nitrite Negative (Negative); Protein, Urine (Dipstick) 30 mg/dL (Neg-Trace)
[2018-01-01 12:40] LABS: Bacteria/HPF 4+ HPF (None Seen); Hyaline Casts/LPF 0-3 HYALINE CAST LPF (0-3 Hyaline); Pathc Cast-AUWi Flag 0.58 (0-2.49); RBC/HPF GREATER THAN 50-TNTC HPF (0-3); Squamous Epithelial None Seen HPF (0-3)
[2018-01-01 12:51] LABS: Yeast-All Forms None Seen HPF (None Seen)
[2018-01-01 13:21] LABS: Hemoglobin 15.1 g/dL (14.0-18.0); Mean Corpuscular Hemoglobin 34.7 pg (27.0-31.0); Mean Platelet Volume 6.3 fL (7.4-10.4); Platelet Count 257 thou/uL (130-400); RBC Distribution Width 13.1 % (11.5-14.5); Red Blood Cell (RBC) Count 4.35 mill/uL (4.70-6.10); White Blood Cell (WBC) Count 8.2 thou/uL (4.8-10.8)
[2018-01-01 13:28] LABS: INR-International Normal Ratio 1.6; Prothrombin Time 19.5 SEC (12.0-14.7)
[2018-01-01 13:43] LABS: CKMB 1.3 ng/mL (0-6.6); Troponin I 0.014 ng/mL (< 0.028)
[2018-01-01 13:46] LABS: ALT (SGPT) 16 U/L (8-55); AST (SGOT) 25 U/L (5-34); Alkaline Phosphatase 74 U/L (40-150); Anion Gap 16 mmol/L (10-20); BUN (Urea Nitrogen) 18 mg/dL (8.4-25.7); Calc. Creatinine Clearance 0 mL/min (70-130); Calcium 9.6 mg/dL (7.8-10.44); Carbon Dioxide 28 mmol/L (23-31); Chloride 89 mmol/L (98-107); Estimated GFR-MDRD 59; Globulin 3.8 g/dL (2.4-3.5); Glucose 104 mg/dL (83-110); Potassium 3.7 mmol/L (3.5-5.1); Protein, Total 7.8 g/dL (5.8-8.1); Sodium 129 mmol/L (136-145)
[2018-01-01] MEDS ORDERED: Ciprofloxacin 500 MG TAB ONE (13:53)
[2018-01-01 13:55] LABS: Band 26 % (5-11); Lymphocytes 9 % (21-51); MDiff Complete? YES; Monocytes 13 % (0-10); Neutrophil 49 % (42-75); PLT Morphology Comment Appears Adequate; Reactive Lymphocytes 1 % (0-10)
--- NOTE | 2018-01-01 14:17 | CT ---
CT HEAD NONCONTRAST: History: Altered mental status. Recent fall. Comparison: 06-16-17 FINDINGS: There is no evidence of acute intracranial hemorrhage or infarct. Diffuse cortical atrophy and chroni c ischemic small vessel disease are again demonstrated. No mass effect or shift of midline structures . Visualized paranasal sinuses are well aerated. IMPRESSION: Chronic type findings are stable. No acute intracranial abnormalities are demonstrated. POS: [facility]
--- NOTE | 2018-01-01 14:42 | RAD ---
CHEST ONE VIEW: 01/01/18 HISTORY: Altered mental status. COMPARISON: 11/20/17. FINDINGS: The cardiac silhouette is magnified by projection. Pulmonary vasculature is unremarkable. Mediastinum is midline. No lobar consolidation or evidence of pneumothorax. Degenerative changes of each should er. IMPRESSION: No active cardiopulmonary abnormalities are demonstrated. POS: [facility]
--- NOTE | 2018-01-05 13:24 | EKG ---
Test Reason : Blood Pressure : / mmHG Vent. Rate : 070 BPM Atrial Rate : 070 BPM P-R Int : 144 ms QRS Dur : 086 ms QT Int : 410 ms P-R-T Axes : 055 -12 044 degrees QTc Int : 442 ms Normal sinus rhythm Septal infarct , age undetermined Abnormal ECG Confirmed by DEMETRIA RASHID ([id number]), editorial director RAFFY THAKUR ([id number]) on 01/05/2018 1:24:23 PM Referred By: Confirmed By:DEMETRIA RASHID
== END 2018-01-01 14:21 | disposition home or self-care (01) ==
LOC: ERS 12:09
DX: N30.01 Acute cystitis with hematuria (principal); R41.0 Disorientation, unspecified; E11.9 Type 2 diabetes mellitus without complications; I10 Essential (primary) hypertension; F17.220 Nicotine dependence, chewing tobacco, uncomplicated; E78.5 Hyperlipidemia, unspecified; Z79.899 Other long term (current) drug therapy
CPT/HCPCS: 36415; 70450; 71045; 80053; 81003; 81015; 82553; 84443; 84484; 85025; 85060; 85610; 85730; 87077; 87086; 87186; 93005

== ENCOUNTER 2021-03-07 14:04 | Inpatient (IN) | payer MEDICARE ==
[2021-03-07 17:08] VITALS: BMI 26.6
[2021-03-07] MEDS ORDERED: Senokot S 8.6-50 MG TAB PO PRN (17:26)
[2021-03-07] MEDS ORDERED: hydrALAZINE 20 MG/ML VIAL SLOW IVP PRN (17:26)
[2021-03-07] MEDS ORDERED: Acetaminophen 325 MG TAB PO PRN (17:26)
[2021-03-07] MEDS ORDERED: Zolpidem Tartrate 5 MG TAB PO PRN (17:26)
[2021-03-07] MEDS ORDERED: HYDROcodone/Acetaminophen 5/325 mg Tablet PO PRN (17:26)
[2021-03-07] MEDS ORDERED: Ondansetron PF 4 MG/2 ML Vial IVP PRN (17:26)
[2021-03-07] MEDS ORDERED: Guaifenesin DM 100-10/5 ML UDCUP PO PRN (17:26)
[2021-03-07] MEDS ORDERED: Calcium Carbonate 500 MG ChewTAB PO PRN (17:26)
[2021-03-07] MEDS ORDERED: Bisacodyl 10 MG SUPP PR PRN (17:26)
[2021-03-07] MEDS ORDERED: Loperamide HCl 2 MG CAP PO PRN (17:26)
[2021-03-07] MEDS ORDERED: Ondansetron ODT 4 MG TAB PO PRN (17:26)
[2021-03-07] MEDS: Famotidine 20 MG TAB PO SCH (20:31)
[2021-03-08 03:04] LABS: #Lymphocytes 0.5 thou/uL (1.20-3.40); #Monocytes 0.7 thou/uL (0.11-0.59); #Neutrophils 3.9 thou/uL (1.40-6.50); %Basophils 0.2 % (0.0-1.0); %Eosinophils 0.5 % (0.0-10.0); %Lymphocytes 10.4 % (21.0-51.0); %Monocytes 13.8 % (0.0-10.0); %Neutrophils 75.2 % (42.0-75.0); Hemoglobin 14.3 g/dL (14.0-18.0); Mean Corpuscular HGB CONC 34.1 g/dL (32.0-36.0); Mean Corpuscular Hemoglobin 34.6 pg (27.0-31.0); Mean Platelet Volume 6.4 fL (7.4-10.4); Platelet Count 236 thou/uL (130-400); Red Blood Cell (RBC) Count 4.14 mill/uL (4.70-6.10); White Blood Cell (WBC) Count 5.2 thou/uL (4.8-10.8)
[2021-03-08 03:41] LABS: ALT (SGPT) 14 U/L (8-55); AST (SGOT) 17 U/L (5-34); Albumin 3.4 g/dL (3.4-4.8); Alkaline Phosphatase 80 U/L (40-110); Anion Gap 12 mmol/L (10-20); BUN (Urea Nitrogen) 8 mg/dL (8.4-25.7); Bilirubin, Total 1.2 mg/dL (0.2-1.2); Calc. Creatinine Clearance 65 mL/min (70-130); Calcium 8.5 mg/dL (7.8-10.44); Carbon Dioxide 23 mmol/L (23-31); Chloride 99 mmol/L (98-107); Globulin 3.1 g/dL (2.4-3.5); Glucose 101 mg/dL (83-110); Magnesium 1.7 mg/dL (1.6-2.6); Potassium 3.4 mmol/L (3.5-5.1); Protein, Total 6.5 g/dL (5.8-8.1); Sodium 131 mmol/L (136-145)
[2021-03-08] MEDS: Furosemide 40 MG/4 ML VIAL SLOW IVP SCH ×2 (05:59→14:07)
[2021-03-08] MEDS: Famotidine 20 MG TAB PO SCH ×2 (08:00→20:22)
[2021-03-08] MEDS ORDERED: FLU VACC QS2021-22(65YR UP)/PF 240 MCG/0.7 ML SYRINGE IM ONE (09:00)
[2021-03-08] MEDS ORDERED: Potassium Chloride 20 MEQ TAB PO SCH (12:15)
[2021-03-08] MEDS ORDERED: Atorvastatin Calcium 10 MG TAB PO SCH (21:00)
[2021-03-09] MEDS: Furosemide 40 MG/4 ML VIAL SLOW IVP SCH (05:42)
[2021-03-09] MEDS: Famotidine 20 MG TAB PO SCH (07:42)
[2021-03-09 08:09] VITALS: BP 126/69; TEMP 98.2
[2021-03-09] MEDS ORDERED: Aspirin 81 mg Enteric Coated Tablet PO SCH (09:00)
[2021-03-09] MEDS ORDERED: Amlodipine 10 MG TAB PO SCH (09:00)
[2021-03-09] MEDS ORDERED: Potassium Chloride 20 MEQ TAB PO SCH (09:00)
[2021-03-09] MEDS ORDERED: Lisinopril 20 MG TAB PO SCH (09:00)
[2021-03-09 09:13] LABS: #Basophils 0.1 thou/uL (0.0-0.2); #Eosinphils 0.1 thou/uL (0.0-0.7); #Lymphocytes 0.4 thou/uL (1.20-3.40); #Monocytes 0.6 thou/uL (0.11-0.59); #Neutrophils 2.9 thou/uL (1.40-6.50); %Basophils 1.3 % (0.0-1.0); %Eosinophils 3.6 % (0.0-10.0); %Lymphocytes 10.7 % (21.0-51.0); %Monocytes 13.6 % (0.0-10.0); %Neutrophils 70.9 % (42.0-75.0); Hemoglobin 15.4 g/dL (14.0-18.0); Mean Corpuscular Hemoglobin 32.6 pg (27.0-31.0); Mean Platelet Volume 6.5 fL (7.4-10.4); Platelet Count 269 thou/uL (130-400); RBC Distribution Width 14.3 % (11.5-14.5); Red Blood Cell (RBC) Count 4.73 mill/uL (4.70-6.10); White Blood Cell (WBC) Count 4.1 thou/uL (4.8-10.8)
[2021-03-09 09:35] LABS: Anion Gap 14 mmol/L (10-20); BUN (Urea Nitrogen) 8 mg/dL (8.4-25.7); Calc. Creatinine Clearance 62 mL/min (70-130); Calcium 8.5 mg/dL (7.8-10.44); Carbon Dioxide 25 mmol/L (23-31); Chloride 95 mmol/L (98-107); Glucose 107 mg/dL (83-110); Potassium 3.1 mmol/L (3.5-5.1); Sodium 131 mmol/L (136-145)
== END 2021-03-09 11:35 | disposition home or self-care (01) | DRG 291 ==
LOC: 2SW 16:49
PROVIDERS: ADMIT Internal Medicine; ATTEND Internal Medicine
DX: I11.0 Hypertensive heart disease with heart failure (principal); I50.33 Acute on chronic diastolic (congestive) heart failure; J96.01 Acute respiratory failure with hypoxia; I48.21 Permanent atrial fibrillation; Z20.822 Contact with and (suspected) exposure to COVID-19; E78.5 Hyperlipidemia, unspecified; F41.9 Anxiety disorder, unspecified; F32.A Depression, unspecified; E11.9 Type 2 diabetes mellitus without complications; K21.9 Gastro-esophageal reflux disease without esophagitis; Z79.01 Long term (current) use of anticoagulants; Z79.82 Long term (current) use of aspirin; Z79.899 Other long term (current) drug therapy
CPT/HCPCS: 36415; 36416; 80048; 80053; 83735; 84443; 84550; 85025; 93306; 93798; J1940

== ENCOUNTER 2021-11-17 09:45 | Outpatient (CLI) | payer MEDICARE | END 2021-11-17 09:46 | disposition home or self-care (01) | LOC: RAD 09:45 | PROVIDERS: ATTEND Internal Medicine Critical Care Medicine | DX: R06.00 Dyspnea, unspecified (principal) | CPT/HCPCS: 71046 ==

== ENCOUNTER 2021-12-21 11:37 | Outpatient (CLI) | payer MEDICARE ==
[~2021-12-21 11:37] MED LIST changes: -Fentanyl 250 MCG/5 ML VIAL ONE; -Heparin 10,000 UNITS/1 ML VIAL ONE; -Lidocaine 1% (PF) 30 ML VIAL ONE; -Midazolam HCl 2 mg/2 ml Vial ONE; -Nitroglycerin 100MG/250ML BOT 250 ML ONE; -Verapamil 5 MG/2 ML VIAL ONE; -hydrALAZINE 20 MG/ML VIAL ONE
== END 2021-12-21 11:38 | disposition home or self-care (01) ==
LOC: CT 11:37
PROVIDERS: ATTEND Internal Medicine Cardiovascular Disease
DX: I65.21 Occlusion and stenosis of right carotid artery (principal); I77.1 Stricture of artery
CPT/HCPCS: 70498; 82565; Q9967

== ENCOUNTER 2022-01-04 19:00 | Outpatient (CLI) | payer MEDICARE | END 2022-01-04 19:01 | disposition home or self-care (01) | LOC: SLEEPLAB 19:00 | PROVIDERS: ATTEND Internal Medicine Critical Care Medicine | DX: G47.33 Obstructive sleep apnea (adult) (pediatric) (principal); G47.10 Hypersomnia, unspecified; I10 Essential (primary) hypertension; I49.8 Other specified cardiac arrhythmias; I27.20 Pulmonary hypertension, unspecified; G47.00 Insomnia, unspecified; R06.83 Snoring; Z68.25 Body mass index [BMI] 25.0-25.9, adult | CPT/HCPCS: 95810 ==

== ENCOUNTER 2022-05-01 14:29 | Outpatient (CLI) | payer MEDICARE | END 2022-05-01 14:30 | disposition home or self-care (01) | LOC: TBSIIMAG 14:29 | PROVIDERS: ATTEND Orthopaedic Surgery Hand Surgery | DX: M65.9 Synovitis and tenosynovitis, unspecified (principal) ==

== ENCOUNTER 2022-11-14 19:00 | Outpatient (CLI) | payer MEDICARE | END 2022-11-14 19:01 | disposition home or self-care (01) | LOC: SLEEPLAB 19:00 | PROVIDERS: ATTEND Internal Medicine Critical Care Medicine | DX: G47.33 Obstructive sleep apnea (adult) (pediatric) (principal); R06.83 Snoring; J44.9 Chronic obstructive pulmonary disease, unspecified; I10 Essential (primary) hypertension; I48.91 Unspecified atrial fibrillation; I25.10 Atherosclerotic heart disease of native coronary artery without angina pectoris; G47.10 Hypersomnia, unspecified; G47.00 Insomnia, unspecified; G47.31 Primary central sleep apnea; I49.3 Ventricular premature depolarization; I49.1 Atrial premature depolarization | CPT/HCPCS: 95810 ==

== ENCOUNTER 2023-01-01 18:24 | Inpatient (IN) | payer MEDICARE ==
[~2023-01-01 18:24] MED LIST changes: -Iopamidol 370 76% 100 ML VIAL ONE; +Iopamidol-370 76% 500 ML MDV (1 ML CHARGE) ONE
[2023-01-01 20:17] LABS: #Basophils 0.1 thou/uL (0.0-0.2); #Monocytes 0.6 thou/uL (0.11-0.59); #Neutrophils 4.3 thou/uL (1.40-6.50); %Basophils 0.9 % (0.0-1.0); %Eosinophils 0.5 % (0.0-10.0); %Lymphocytes 15.2 % (21.0-51.0); %Monocytes 10.4 % (0.0-10.0); %Neutrophils 72.7 % (42.0-75.0); Hematocrit 47.9 % (42.0-52.0); Mean Corpuscular HGB CONC 35.5 g/dL (32.0-36.0); Mean Corpuscular Hemoglobin 34.2 pg (27.0-31.0); Mean Corpuscular Volume 96.4 fl (78.0-98.0); Mean Platelet Volume 8.7 fL (7.4-10.4); Platelet Count 236 10x3/uL (130-400); RBC Distribution Width 14.4 % (11.5-14.5); Red Blood Cell (RBC) Count 4.97 mill/uL (4.70-6.10); White Blood Cell (WBC) Count 5.9 10x3/uL (4.8-10.8)
[2023-01-01 20:43] LABS: Troponin I 0.011 ng/mL (< 0.028)
[2023-01-01 20:58] LABS: ALT (SGPT) 23 U/L (8-55); AST (SGOT) 20 U/L (5-34); Albumin 4.1 g/dL (3.4-4.8); Alkaline Phosphatase 107 U/L (40-110); BUN (Urea Nitrogen) 8 mg/dL (8.4-25.7); Bilirubin, Total 0.9 mg/dL (0.2-1.2); Calc. Creatinine Clearance 0 mL/min (70-130); Calcium 8.9 mg/dL (7.8-10.44); Chloride 99 mmol/L (98-107); Estimated GFR 81; Globulin 3.7 g/dL (2.4-3.5); Glucose 97 mg/dL (83-110); Magnesium 1.8 mg/dL (1.6-2.6); Potassium 3.4 mmol/L (3.5-5.1); Protein, Total 7.8 g/dL (5.8-8.1); Sodium 131 mmol/L (136-145)
[2023-01-01 21:09] LABS: Anion Gap 14 mmol/L (10-20); Carbon Dioxide 22 mmol/L (23-31)
[2023-01-01] MEDS ORDERED: Potassium Chloride 20 MEQ TAB ONE (21:10)
[2023-01-01] MEDS ORDERED: Furosemide 40 MG/4 ML VIAL ONE (21:10)
[2023-01-01 22:18] LABS: Bacteria/HPF None Seen HPF (None Seen); Bilirubin Negative (Negative); Blood, Urine Negative (Negative); CAUTI Indications for Culture Alt mental st,lethar; Clarity Clear (Clear); Glucose, Urine (Dipstick) Normal (Negative); Ketone, Urine Negative (Negative); Leukocyte Negative Leu/uL (Negative); Nitrite Negative (Negative); Protein, Urine (Dipstick) Negative (Neg-Trace); RBC/HPF 0-3 HPF (0-3); Specific Gravity, Urine 1.006 (1.002-1.036); Squamous Epithelial None Seen HPF (0-3); Urobilinogen Normal mg/dL (Less than 2); WBC/HPF 0-3 HPF (0-3); pH, Urine 6.5 (5.0-9.0)
[2023-01-01 22:20] LABS: Urine Culture Reflex No No
[2023-01-02] MEDS ORDERED: Electrolyte Replacement Protocol 1 EACH FS PRN (01:40)
[2023-01-02] MEDS ORDERED: Acetaminophen 325 MG TAB PO PRN (01:40)
[2023-01-02] MEDS ORDERED: Senokot S 8.6-50 MG TAB PO PRN (01:40)
[2023-01-02] MEDS ORDERED: Ondansetron ODT 4 MG TAB PO PRN (01:40)
[2023-01-02 02:03] VITALS: BMI 24.4
[2023-01-02] MEDS: Furosemide 40 MG/4 ML VIAL SLOW IVP SCH ×2 (05:52→15:36)
[2023-01-02 07:31] LABS: Anion Gap 15 mmol/L (10-20); BUN (Urea Nitrogen) 8 mg/dL (8.4-25.7); Calc. Creatinine Clearance 64 mL/min (70-130); Calcium 8.5 mg/dL (7.8-10.44); Carbon Dioxide 24 mmol/L (23-31); Chloride 99 mmol/L (98-107); Estimated GFR 84; Glucose 113 mg/dL (83-110); Potassium 3.7 mmol/L (3.5-5.1); Sodium 134 mmol/L (136-145)
[2023-01-02] MEDS ORDERED: Magnesium 2 GM/50 ML(in water) 2 GM in Premix Bag 1 BAG IVPB SCH (08:00)
[2023-01-02] MEDS: Aspirin 81 mg Enteric Coated Tablet PO SCH (08:32)
[2023-01-02] MEDS: Famotidine 20 MG TAB PO SCH ×2 (08:33→20:46)
[2023-01-02] MEDS ORDERED: Lisinopril 20 MG TAB PO SCH (09:00)
[2023-01-02] MEDS ORDERED: Atorvastatin Calcium 10 MG TAB PO SCH (21:00)
[2023-01-03] MEDS: Furosemide 40 MG/4 ML VIAL SLOW IVP SCH (06:26)
[2023-01-03] MEDS: Famotidine 20 MG TAB PO SCH (09:30)
[2023-01-03] MEDS: Aspirin 81 mg Enteric Coated Tablet PO SCH (09:30)
[2023-01-03 12:07] VITALS: BP 102/61; TEMP 97.9
[2023-01-05] MEDS ORDERED: FLU VACC QS2023(65UP)/MF59C/PF 60 MCG/0.5 ML SYRINGE IM ONE (09:00)
== END 2023-01-03 15:15 | disposition home or self-care (01) | DRG 291 ==
LOC: ERS 18:24 → 2SW 01-02 00:27 → OBSVTOIN 01-02 16:05
PROVIDERS: ADMIT Student in an Organized Health Care Education/Training Program; ATTEND Family Medicine
DX: I11.0 Hypertensive heart disease with heart failure (principal); I50.33 Acute on chronic diastolic (congestive) heart failure; E78.5 Hyperlipidemia, unspecified; I95.9 Hypotension, unspecified; G47.33 Obstructive sleep apnea (adult) (pediatric); I48.0 Paroxysmal atrial fibrillation; I27.20 Pulmonary hypertension, unspecified; Z79.82 Long term (current) use of aspirin; Z79.899 Other long term (current) drug therapy; Z98.890 Other specified postprocedural states
CPT/HCPCS: 36415; 71045; 71275; 80048; 80053; 81001; 83735; 83880; 84484; 85025; 93005; 93306; 93798; 96372; 96375; 96376; G0378; J1650; J1940; J3475; Q9967

== ENCOUNTER 2023-01-29 22:20 | Inpatient (IN) | payer MEDICARE ==
[2023-01-29 22:47] LABS: #Monocytes 0.6 thou/uL (0.11-0.59); #Neutrophils 5.9 thou/uL (1.40-6.50); %Basophils 0.5 % (0.0-1.0); %Eosinophils 0.1 % (0.0-10.0); %Lymphocytes 11.3 % (21.0-51.0); %Monocytes 7.8 % (0.0-10.0); %Neutrophils 79.9 % (42.0-75.0); Hematocrit 44.4 % (42.0-52.0); Hemoglobin 15.4 g/dL (14.0-18.0); Mean Corpuscular HGB CONC 34.7 g/dL (32.0-36.0); Mean Corpuscular Hemoglobin 34.3 pg (27.0-31.0); Mean Corpuscular Volume 98.9 fl (78.0-98.0); Mean Platelet Volume 9.3 fL (7.4-10.4); Platelet Count 233 10x3/uL (130-400); RBC Distribution Width 14.4 % (11.5-14.5); Red Blood Cell (RBC) Count 4.49 mill/uL (4.70-6.10); White Blood Cell (WBC) Count 7.4 10x3/uL (4.8-10.8)
[2023-01-29 23:11] LABS: ALT (SGPT) 68 U/L (8-55); AST (SGOT) 45 U/L (5-34); Albumin 4.3 g/dL (3.4-4.8); Alkaline Phosphatase 116 U/L (40-110); Anion Gap 20 mmol/L (10-20); BUN (Urea Nitrogen) 11 mg/dL (8.4-25.7); Bilirubin, Total 0.5 mg/dL (0.2-1.2); Calc. Creatinine Clearance 0 mL/min (70-130); Carbon Dioxide 21 mmol/L (23-31); Chloride 97 mmol/L (98-107); Estimated GFR 56; Globulin 3.4 g/dL (2.4-3.5); Glucose 140 mg/dL (83-110); Potassium 3.5 mmol/L (3.5-5.1); Protein, Total 7.7 g/dL (5.8-8.1); Sodium 134 mmol/L (136-145)
[2023-01-30 00:18] LABS: Magnesium 1.6 mg/dL (1.6-2.6)
[2023-01-30 00:21] LABS: INR-International Normal Ratio 1.2; Prothrombin Time 15.4 sec (12.0-14.7)
[2023-01-30 00:26] LABS: Troponin I 1.375 ng/mL (< 0.028)
[2023-01-30] MEDS ORDERED: Acetaminophen 325 MG TAB PO PRN (00:32)
[2023-01-30] MEDS ORDERED: Ondansetron PF 4 MG/2 ML Vial IVP PRN (00:32)
[2023-01-30] MEDS ORDERED: Acetaminophen 650 MG Suppository PR PRN (00:32)
[2023-01-30] MEDS ORDERED: Ondansetron ODT 4 MG TAB PO PRN (00:32)
[2023-01-30 02:32] VITALS: BMI 24.5
[2023-01-30] MEDS ORDERED: hydrALAZINE 20 MG/ML VIAL SLOW IVP PRN (03:50)
[2023-01-30] MEDS ORDERED: Electrolyte Replacement Protocol 1 EACH FS SCH (04:00)
[2023-01-30 05:57] LABS: #Basophils 0.1 thou/uL (0.0-0.2); #Monocytes 0.5 thou/uL (0.11-0.59); #Neutrophils 3.3 thou/uL (1.40-6.50); %Eosinophils 0.6 % (0.0-10.0); %Monocytes 10.4 % (0.0-10.0); %Neutrophils 65.4 % (42.0-75.0); Hematocrit 38.9 % (42.0-52.0); Hemoglobin 13.5 g/dL (14.0-18.0); Mean Corpuscular HGB CONC 34.7 g/dL (32.0-36.0); Mean Corpuscular Hemoglobin 34.3 pg (27.0-31.0); Mean Corpuscular Volume 98.7 fl (78.0-98.0); Mean Platelet Volume 9.5 fL (7.4-10.4); Platelet Count 212 10x3/uL (130-400); RBC Distribution Width 14.5 % (11.5-14.5); Red Blood Cell (RBC) Count 3.94 mill/uL (4.70-6.10); White Blood Cell (WBC) Count 5.1 10x3/uL (4.8-10.8)
[2023-01-30 06:13] LABS: INR-International Normal Ratio 1.2; PTT 26.6 sec (22.9-36.1); Prothrombin Time 15.9 sec (12.0-14.7)
[2023-01-30 06:18] LABS: Anion Gap 12 mmol/L (10-20); BUN (Urea Nitrogen) 10 mg/dL (8.4-25.7); Calc. Creatinine Clearance 65 mL/min (70-130); Calcium 8.4 mg/dL (7.8-10.44); Carbon Dioxide 23 mmol/L (23-31); Chloride 101 mmol/L (98-107); Estimated GFR 84; Glucose 111 mg/dL (83-110); Potassium 3.2 mmol/L (3.5-5.1); Sodium 133 mmol/L (136-145)
[2023-01-30 06:27] LABS: Troponin I 1.161 ng/mL (< 0.028)
[2023-01-30 06:42] LABS: HBCM Index 0.05 S/CO (0-0.79); HBSAg Index 0.25 S/CO (0-0.99); Hep A IgM AB Non-Reactive S/CO (NonReactive); Hep A IgM S/CO 0.21 S/CO (0-0.79); Hep B Surf Ag Non-Reactive S/CO (NonReactive); Hep C IgG Ab Non-Reactive S/CO (NonReactive); Hep C Index 0.06 S/CO (0-0.79); Hepatitis B Core IgM Abs Non-Reactive S/CO (NonReactive)
[2023-01-30 09:32] LABS: Critical Call Chem Troponin I RESULT DECREASING; Troponin I 1.058 ng/mL (< 0.028)
[2023-01-30] MEDS ORDERED: Potassium Chloride 20 MEQ TAB PO SCH (13:30)
[2023-01-30 16:51] LABS: Magnesium 1.6 mg/dL (1.6-2.6)
[2023-01-30] MEDS ORDERED: Magnesium 2 GM/50 ML(in water) 2 GM in Premix 1 BAG IVPB SCH (17:15)
[2023-01-31 04:04] LABS: #Basophils 0.1 thou/uL (0.0-0.2); #Eosinphils 0.2 thou/uL (0.0-0.7); #Monocytes 0.7 thou/uL (0.11-0.59); #Neutrophils 4.5 thou/uL (1.40-6.50); %Basophils 0.9 % (0.0-1.0); %Eosinophils 2.6 % (0.0-10.0); %Lymphocytes 18.6 % (21.0-51.0); %Neutrophils 67.6 % (42.0-75.0); Hematocrit 39.3 % (42.0-52.0); Hemoglobin 13.2 g/dL (14.0-18.0); Mean Corpuscular HGB CONC 33.6 g/dL (32.0-36.0); Mean Corpuscular Hemoglobin 33.7 pg (27.0-31.0); Mean Corpuscular Volume 100.3 fl (78.0-98.0); Mean Platelet Volume 9.3 fL (7.4-10.4); Platelet Count 209 10x3/uL (130-400); RBC Distribution Width 14.4 % (11.5-14.5); Red Blood Cell (RBC) Count 3.92 mill/uL (4.70-6.10); White Blood Cell (WBC) Count 6.6 10x3/uL (4.8-10.8)
[2023-01-31 04:35] LABS: ALT (SGPT) 41 U/L (8-55); AST (SGOT) 19 U/L (5-34); Albumin 3.8 g/dL (3.4-4.8); Alkaline Phosphatase 90 U/L (40-110); Anion Gap 13 mmol/L (10-20); BUN (Urea Nitrogen) 9 mg/dL (8.4-25.7); Bilirubin, Total 0.6 mg/dL (0.2-1.2); Calc. Creatinine Clearance 62 mL/min (70-130); Calcium 8.5 mg/dL (7.8-10.44); Carbon Dioxide 21 mmol/L (23-31); Chloride 103 mmol/L (98-107); Estimated GFR 79; Globulin 2.6 g/dL (2.4-3.5); Glucose 100 mg/dL (83-110); Potassium 3.3 mmol/L (3.5-5.1); Protein, Total 6.4 g/dL (5.8-8.1); Sodium 134 mmol/L (136-145)
[2023-01-31] MEDS ORDERED: Magnesium 2 GM/50 ML(in water) 2 GM in Premix 1 BAG IVPB SCH (06:15)
[2023-01-31] MEDS: Potassium Chloride 20 MEQ in Premix 1 BAG IVPB SCH ×2 (06:35→16:37)
[2023-01-31] MEDS ORDERED: Heparin 5,000 UNITS/ML VIAL ONE (09:14)
[2023-01-31] MEDS ORDERED: Protamine Sulfate 50 MG/5 ML VIAL ONE (09:15)
[2023-01-31] MEDS ORDERED: EPINEPHrine 1 MG/ML VIAL ONE (09:15)
[2023-01-31] MEDS ORDERED: Bupivacaine PF 0.5% 30 ML VIAL ONE (09:15)
[2023-01-31] MEDS ORDERED: CEFAZOLIN 2 GM VIAL ONE (09:33)
[2023-01-31] MEDS ORDERED: Sodium Chloride 0.9% 100 ML ONE (09:33)
[2023-01-31] MEDS ORDERED: PHENYLEPHRINE-NS 100 MCG/ML 10 ML SYRINGE ONE (09:38)
[2023-01-31] MEDS ORDERED: Glycopyrrolate 0.2 MG/ML 5 ML SYRINGE ONE (09:38)
[2023-01-31] MEDS ORDERED: Rocuronium Bromide 10 MG/ML (10ML VIAL) ONE (09:38)
[2023-01-31] MEDS ORDERED: ePHEDrine Sulfate 50 MG/10 ML VIAL ONE (09:38)
[2023-01-31] MEDS ORDERED: Ondansetron PF 4 MG/2 ML Vial ONE (09:38)
[2023-01-31] MEDS ORDERED: NEOSTIGMINE 3 MG/3 ML SYR 3 MG/3 ML SYRINGE ONE (09:38)
[2023-01-31] MEDS ORDERED: Dexamethasone 20 MG/5 ML VIAL ONE (09:38)
[2023-01-31] MEDS ORDERED: PROPOFOL 200 MG/20 ML VIAL ONE (09:38)
[2023-01-31] MEDS ORDERED: Labetalol HCl 100 MG/20 ML VIAL ONE (09:38)
[2023-01-31] MEDS ORDERED: fentaNYL 50 mcg/mL 1 mL Vial ONE (10:10)
[2023-01-31] MEDS ORDERED: Acetaminophen 325 MG TAB PO PRN (12:06)
[2023-01-31] MEDS ORDERED: NOREPINEPHRINE 8 MG/250 ML-D5W 250 ML IVPB PRN (12:06)
[2023-01-31] MEDS ORDERED: traMADol HCl 50 MG TAB PO PRN (12:06)
[2023-01-31] MEDS ORDERED: hydrALAZINE 20 MG/ML VIAL SLOW IVP PRN (12:06)
[2023-01-31] MEDS ORDERED: Sodium Chloride 0.9% 1,000 ML IV SCH (12:06)
[2023-01-31] MEDS ORDERED: Ondansetron PF 4 MG/2 ML Vial IVP PRN (12:06)
[2023-01-31] MEDS ORDERED: Ipratropium/Albuterol 3 ML NEB NEB PRN ×2 (12:06→12:15)
[2023-01-31] MEDS ORDERED: Potassium Bicarbonate/Cit Ac 20 MEQ TAB PO SCH (15:30)
[2023-01-31] MEDS: CEFAZOLIN 2 GM in Sodium Chloride 0.9% 100 ML IVPB SCH (17:44)
[2023-01-31] MEDS: Atorvastatin Calcium 20 MG TAB PO SCH (20:12)
[2023-02-01] MEDS: CEFAZOLIN 2 GM in Sodium Chloride 0.9% 100 ML IVPB SCH ×2 (02:20→09:31)
[2023-02-01 04:18] LABS: #Monocytes 0.7 thou/uL (0.11-0.59); #Neutrophils 6.3 thou/uL (1.40-6.50); %Basophils 0.1 % (0.0-1.0); %Lymphocytes 9.8 % (21.0-51.0); %Monocytes 9.2 % (0.0-10.0); %Neutrophils 80.5 % (42.0-75.0); Hematocrit 37.2 % (42.0-52.0); Hemoglobin 12.4 g/dL (14.0-18.0); Mean Corpuscular HGB CONC 33.3 g/dL (32.0-36.0); Mean Corpuscular Hemoglobin 34.2 pg (27.0-31.0); Mean Corpuscular Volume 102.5 fl (78.0-98.0); Mean Platelet Volume 9.4 fL (7.4-10.4); Platelet Count 203 10x3/uL (130-400); RBC Distribution Width 14.5 % (11.5-14.5); Red Blood Cell (RBC) Count 3.63 mill/uL (4.70-6.10); White Blood Cell (WBC) Count 7.9 10x3/uL (4.8-10.8)
[2023-02-01 04:52] LABS: Anion Gap 13 mmol/L (10-20); BUN (Urea Nitrogen) 10 mg/dL (8.4-25.7); Calc. Creatinine Clearance 61 mL/min (70-130); Calcium 8.6 mg/dL (7.8-10.44); Carbon Dioxide 20 mmol/L (23-31); Chloride 103 mmol/L (98-107); Estimated GFR 79; Glucose 117 mg/dL (83-110); Potassium 4.5 mmol/L (3.5-5.1); Sodium 131 mmol/L (136-145)
[2023-02-01] MEDS: Aspirin Chewable 81 MG TAB PO SCH (09:26)
[2023-02-01] MEDS: Atorvastatin Calcium 20 MG TAB PO SCH (20:04)
[2023-02-01 20:24] VITALS: BP 95/74
[2023-02-02 01:15] LABS: #Basophils 0.1 thou/uL (0.0-0.2); #Monocytes 1.1 thou/uL (0.11-0.59); #Neutrophils 6.2 thou/uL (1.40-6.50); %Basophils 0.5 % (0.0-1.0); %Eosinophils 0.1 % (0.0-10.0); %Lymphocytes 22.4 % (21.0-51.0); %Monocytes 11.4 % (0.0-10.0); %Neutrophils 65.1 % (42.0-75.0); Hematocrit 42.9 % (42.0-52.0); Hemoglobin 13.4 g/dL (14.0-18.0); Mean Corpuscular HGB CONC 31.2 g/dL (32.0-36.0); Mean Corpuscular Hemoglobin 33.7 pg (27.0-31.0); Mean Platelet Volume 9.6 fL (7.4-10.4); Platelet Count 260 10x3/uL (130-400); RBC Distribution Width 14.6 % (11.5-14.5); Red Blood Cell (RBC) Count 3.98 mill/uL (4.70-6.10); White Blood Cell (WBC) Count 9.5 10x3/uL (4.8-10.8)
[2023-02-02 01:18] LABS: Mean Corpuscular Volume 107.8 fl (78.0-98.0)
[2023-02-02 01:39] LABS: ALT (SGPT) 24 U/L (8-55); AST (SGOT) 19 U/L (5-34); Albumin 3.8 g/dL (3.4-4.8); Alkaline Phosphatase 91 U/L (40-110); Anion Gap 23 mmol/L (10-20); BUN (Urea Nitrogen) 13 mg/dL (8.4-25.7); Bilirubin, Total 0.7 mg/dL (0.2-1.2); Calc. Creatinine Clearance 43 mL/min (70-130); Calcium 8.6 mg/dL (7.8-10.44); Carbon Dioxide 14 mmol/L (23-31); Chloride 100 mmol/L (98-107); Estimated GFR 52; Globulin 2.9 g/dL (2.4-3.5); Glucose 165 mg/dL (83-110); Magnesium 2.2 mg/dL (1.6-2.6); Phosphorus 4.3 mg/dL (2.3-4.7); Potassium 3.6 mmol/L (3.5-5.1); Protein, Total 6.7 g/dL (5.8-8.1); Sodium 133 mmol/L (136-145)
[2023-02-02 02:00] LABS: Troponin I 0.459 ng/mL (< 0.028)
[2023-02-02] MEDS ORDERED: levETIRAcetam 500 MG/5 ML VIAL SLOW IVP SCH (02:15)
[2023-02-02] MEDS ORDERED: Sodium Chloride 0.9% 500 ML IV SCH (02:30)
[2023-02-02 02:43] LABS: Lactic Acid 2.9 mmol/L (0.5-2.2)
[2023-02-02] MEDS ORDERED: Multivit, Adult Inj 10 ML VIAL IV SCH (04:30)
[2023-02-02] MEDS ORDERED: Multivitamins, Adult 10 ML in Sodium Chloride 0.9% 500 ML IV SCH (05:00)
[2023-02-02 05:41] LABS: Anion Gap 12 mmol/L (10-20); BUN (Urea Nitrogen) 13 mg/dL (8.4-25.7); Calc. Creatinine Clearance 55 mL/min (70-130); Calcium 8.2 mg/dL (7.8-10.44); Carbon Dioxide 23 mmol/L (23-31); Chloride 103 mmol/L (98-107); Estimated GFR 70; Glucose 90 mg/dL (83-110); Potassium 4.1 mmol/L (3.5-5.1); Sodium 134 mmol/L (136-145)
[2023-02-02] MEDS ORDERED: Folic Acid 1 MG TAB PO SCH (09:00)
[2023-02-02] MEDS ORDERED: Thiamine 100 MG TAB PO SCH (09:00)
[2023-02-02] MEDS: Aspirin Chewable 81 MG TAB PO SCH (09:55)
[2023-02-02] MEDS: levETIRAcetam 500 MG TAB PO SCH ×2 (10:00)
[2023-02-02] MEDS: Atorvastatin Calcium 20 MG TAB PO SCH (20:20)
[2023-02-02 20:39] LABS: SARS-CoV-2 NAA Rapid Test Not Detected (NotDetected)
[2023-02-02 20:42] VITALS: TEMP 98
== END 2023-02-02 23:03 | disposition short-term general hospital (02) | DRG 37 ==
LOC: ERS 22:20 → IMCU/EMU 01-30 00:26 → CCU 01-31 10:35
PROVIDERS: ADMIT Student in an Organized Health Care Education/Training Program; ATTEND Internal Medicine
PROC: 03CK0ZZ Extirpation of Matter from Right Internal Carotid Artery, Open Approach (ICD-10-PCS; principal; 2023-01-31)
PROC: 03UK0KZ Supplement Right Internal Carotid Artery with Nonautologous Tissue Substitute, Open Approach (ICD-10-PCS; 2023-01-31)
PROC: 3E033XZ Introduction of Vasopressor into Peripheral Vein, Percutaneous Approach (ICD-10-PCS; 2023-01-31)
DX: S06.6X9A Traumatic subarachnoid hemorrhage with loss of consciousness of unspecified duration, initial encounter (principal); I21.A1 Myocardial infarction type 2; I50.32 Chronic diastolic (congestive) heart failure; E87.1 Hypo-osmolality and hyponatremia; I48.91 Unspecified atrial fibrillation; I11.0 Hypertensive heart disease with heart failure; E78.5 Hyperlipidemia, unspecified; R74.01 Elevation of levels of liver transaminase levels; S01.01XA Laceration without foreign body of scalp, initial encounter; I48.0 Paroxysmal atrial fibrillation; J44.9 Chronic obstructive pulmonary disease, unspecified; I25.10 Atherosclerotic heart disease of native coronary artery without angina pectoris; I65.21 Occlusion and stenosis of right carotid artery; I27.20 Pulmonary hypertension, unspecified; I95.1 Orthostatic hypotension; E87.6 Hypokalemia; Z88.8 Allergy status to other drugs, medicaments and biological substances; Z98.890 Other specified postprocedural states; Z79.899 Other long term (current) drug therapy; Z79.82 Long term (current) use of aspirin; Z79.01 Long term (current) use of anticoagulants; Z20.822 Contact with and (suspected) exposure to COVID-19
CPT/HCPCS: 36415; 36416; 70450; 71045; 71275; 72125; 76705; 78451; 80048; 80053; 80074; 83605; 83735; 83880; 84100; 84146; 84484; 85025; 85610; 85730; 86850; 86900; 86901; 93005; 93010; 93306; 93970; 95711; 95819; 95957; A9540; C1768; J0171; J0360; J1642; J1644; J1953; J2720; J3010; J3475; J3480; J3490; J7030; J7050; S0020; U0002